=== PATIENT | male | born 2000 | race Caucasian/White ===

== ENCOUNTER 2019-10-21 17:20 | Emergency (ER) | payer OTHER, SELFPAY ==
[2019-10-21 18:12] VITALS: BP 146/86; PULSE 85; RESP 16; TEMP 36.8; O2SAT 100; BMI 28.5
--- NOTE | 2019-10-21 18:47 | ED.WOUNDLAC ---
HPI - Wound/Laceration <ANA PAULA Girard - Last Filed: 10/21/19 20:48> General Chief Complaint: Wound/Laceration Stated Complaint: left 2nd finger cut Time Seen by Provider: 10/21/19 17:33 Source: patient Mode of arrival: Ambulatory History of Present Illness HPI narrative: 19yo male presents to the emergency department complaining of a laceration of his left 2nd finger with a razor blade for the past few hours. He denies any numbness or tingling, purulent discharge, or any other concerns. Patient states his Tdap ? in 2019 ?. Patient states the bleeding was controlled with a pressure dressing. Related Data Allergies Allergy/AdvReac Type Severity Reaction Status Date / Time promethazine [From Phenergan] AdvReac Severe Unresponsiv Verified 10/21/19 18:16 e Review of Systems <ANA PAULA Girard - Last Filed: 10/21/19 20:48> Review of Systems Narrative: REVIEW OF SYSTEMS: GENERAL: Denies fever or chills. HENT: Denies head trauma. EYE: Denies double vision or vision loss. CARDIOVASCULAR: Denies syncope. MUSCULOSKELETAL: Denies weakness, or deformities. INTEGUMENTARY: Complains of left 2nd finger laceration, see HPI. NEURO: Denies numbness or tingling. Patient History <ANA PAULA Girard - Last Filed: 10/21/19 20:48> Medical History No significant medical problems (Acute) Social History Smoking Status: Never smoker Smoking Status: Never smoker alcohol intake frequency: a few times a week Substance Use Type: marijuana Exam <ANA PAULA Girard - Last Filed: 10/21/19 20:48> Initial Vital Signs Initial Vital Signs: Vital Signs Temperature 98.2 F 10/21/19 18:12 Pulse Rate 85 10/21/19 18:12 Respiratory Rate 16 10/21/19 18:12 Blood Pressure 146/86 H 10/21/19 18:12 Pulse Oximetry 100 10/21/19 18:12 PHYSICAL EXAMINATION: GENERAL: Well groomed, alert, and cooperative. Answers questions promptly and appropriately. Vital signs noted. HENT: Normocephalic, atraumatic. RESPIRATORY: Normal respiratory rate, trachea midline, airway patent. No stridor, nasal flaring or accessory muscle use. MUSCULOSKELETAL: Good range of motion against resistance including flexion and extension of finger tip. Normal gait and coordination. Equal tone and mass bilaterally. EXTREMITIES: CMS intact. Cap refill <2seconds to finger tip. SKIN: Warm, dry, soft, appropriate color for ethnicity. 2cm laceration noted just below dip joint to left 2nd finger. NEURO: Alert and Oriented X 3. Good coordination. PSYCH: Appropriate affect and mood. <Taran Oneil DO - Last Filed: 10/22/19 02:09> Initial Vital Signs Initial Vital Signs: Vital Signs Temperature 98.2 F 10/21/19 18:12 Pulse Rate 85 10/21/19 18:12 Respiratory Rate 16 10/21/19 18:12 Blood Pressure 146/86 H 10/21/19 18:12 Pulse Oximetry 100 10/21/19 18:12 Procedures <ANA PAULA Girard - Last Filed: 10/21/19 20:48> Laceration Repair Laceration 1: Site: hand Side (If applicable): left Size (cm): 2 Description: linear Depth: simple, single layer Local Anesthetic: lidocaine 1% and with bicarb Amount of anesthesia used (mL): 4 Skin layer closed with: nylon Size (cm): 5-0 Number of sutures: 5 Technique: simple, interrupted Course <ANA PAULA Girard - Last Filed: 10/21/19 20:48> Course Course Narrative: Laceration was irrigated, repaired with sutures, see procedure note. Tdap was updated. Patient reported no pain upon discharge. Orders Ordered: Discontinued Medications Bacitracin (Bacitracin) 1 applic TOP NOW ONE Stop: 10/21/19 19:36 Last Admin: 10/21/19 19:46 Dose: 1 applic Documented by: BALTAZAR Diphtheria/Tetanus/Acell Pertussis (Adacel) 0.5 ml IM .ONCE ONE Stop: 10/21/19 18:47 Last Admin: 10/21/19 19:04 Dose: 0.5 ml Documented by: KIMI Lidocaine/Sodium Bicarbonate (Buffered Lidocaine 10 Ml Syr) 10 ml INJ NOW ONE Stop: 10/21/19 18:47 Last Admin: 10/21/19 19:03 Dose: 10 ml Documented by: KIMI Vital Signs Vital signs: Vital Signs - 8 hr 10/21/19 18:12 Temperature 98.2 F Pulse Rate 85 Respiratory Rate 16 Blood Pressure 146/86 H Pulse Oximetry 100 <Taran Oneil DO - Last Filed: 10/22/19 02:09> Orders Ordered: Discontinued Medications Bacitracin (Bacitracin) 1 applic TOP NOW ONE Stop: 10/21/19 19:36 Last Admin: 10/21/19 19:46 Dose: 1 applic Documented by: BALTAZAR Diphtheria/Tetanus/Acell Pertussis (Adacel) 0.5 ml IM .ONCE ONE Stop: 10/21/19 18:47 Last Admin: 10/21/19 19:04 Dose: 0.5 ml Documented by: KIMI Lidocaine/Sodium Bicarbonate (Buffered Lidocaine 10 Ml Syr) 10 ml INJ NOW ONE Stop: 10/21/19 18:47 Last Admin: 10/21/19 19:03 Dose: 10 ml Documented by: KIMI Vital Signs Vital signs: Vital Signs - 8 hr 10/21/19 18:12 Temperature 98.2 F Pulse Rate 85 Respiratory Rate 16 Blood Pressure 146/86 H Pulse Oximetry 100 MDM - Wound/Laceration <ANA PAULA Girard - Last Filed: 10/21/19 20:48> Medical Records Attestation: I reviewed the patient's medical records. Lab Data Attestation: I reviewed the patient's lab results. MDM Narrative Medical decision making narrative: History and examination reveal a simple laceration without concerns of tendon involvement as patient has full range of motion of finger including flexion and extension against resistance. No tendon was visualized with exploration. Sutures were placed. Tdap was updated. Patient was counseled extensively about watching for signs of infection and to follow up at the urgent care or his PCP to have sutures removed. Return precautions given for infection. Patient agreed to plan of care verbalized understanding. Patient tolerated the procedure well. Discharge Plan Departure Patient Disposition: Home Clinical Impression: Laceration Discharge Date/Time: 10/21/19 19:54 Instructions: DI for Laceration Repair Activity Restrictions/Additional Instructions: Thank you for entrusting me with your care today. As discussed, your laceration has been repaired with [address] sut[address] Neosporin over the area 1 to 2 times a day. Do not immerse your finger in water until your sutures are removed. Please keep the dressing in place for the next 24 hours. Return emergency department for any in new or worsening symptoms or signs of infection such as increased redness, significant pain, purulent discharge, or any other concerns. Please have your sutures removed in approximately 7 days.
[2019-10-21] MEDS: LIDO 1%/SOD BICARB 8.4% (10ML) 10 ML SYRINGE INJ (19:03)
[2019-10-21] MEDS: TET,DIPH,PERTUSS(ACELL),VAC/PF 0.5 ML SYRINGE IM (19:04)
[2019-10-21] MEDS: BACITRACIN OINT 0.9 GM PCKT 1 APPLIC TOP (19:46)
== END 2019-10-21 19:54 | disposition home or self-care (01) ==
PROVIDERS: Emergency Provider Nurse Practitioner
DX: S61.211A Laceration without foreign body of left index finger without damage to nail, initial encounter (principal); W26.8XXA Contact with other sharp object(s), not elsewhere classified, initial encounter; Z23 Encounter for immunization; Y99.0 Civilian activity done for income or pay
CPT/HCPCS: 12001; 90471; 99283; 90715